=== PATIENT | male | born 1995 | race American Indian/Alaskan Native ===

== ENCOUNTER 2021-03-17 11:59 | Emergency (ER) | payer OTHER ==
[2021-03-17 12:10] VITALS: BMI 30.6
[2021-03-17 13:53] LABS: URINE APPEARANCE CLEAR; URINE BILIRUBIN NEGATIVE (NEGATIVE); URINE COLOR YELLOW; URINE GLUCOSE (UA) NEGATIVE (NEGATIVE); URINE KETONE NEGATIVE (NEGATIVE); URINE LEUK ESTERASE NEGATIVE (NEGATIVE); URINE NITRITE NEGATIVE (NEGATIVE); URINE PROTEIN NEGATIVE (NEGATIVE); URINE UROBILINOGEN 0.2 mg/dL (0.2-1.0)
[2021-03-17 16:39] LABS: ALBUMIN 4.5 g/dl (3.4-5.0); CALCIUM 9.4 mg/dL (8.5-10.1)
[2021-03-17 16:41] LABS: CREATININE 0.9 mg/dL (0.55-1.3)
[2021-03-17 16:43] LABS: BILIRUBIN,TOTAL 0.4 mg/dL (0.2-1)
[2021-03-17 17:06] LABS: SYPHILIS W/ RPR CONF NON-REACTIVE (NONREACTIVE)
[2021-03-17 17:35] LABS: HIV INTERPRETATION NEGATIVE (NEGATIVE)
[2021-03-17 18:40] VITALS: TEMP 98.2
[2021-03-17 18:42] VITALS: BP 128/70; PULSE 70
== END 2021-03-17 18:42 | disposition home or self-care (01) ==
LOC: JER 11:59
DX: N50.812 Left testicular pain (principal)
CPT/HCPCS: 36415; 76775-TC; 76870-TC; 80053; 81003; 86780; 87086; 87389; 99285-25